=== PATIENT | female | born 1995 | race Asian ===

== ENCOUNTER 2016-08-17 17:02 | Emergency (ER) | payer OTHER ==
[~2016-08-17] VITALS: Ht 160 cm; Wt 50.7 kg
[2016-08-17 17:05] VITALS: BP 104/57; PULSE 61; TEMP 36.9; O2SAT 97; Ht 160 cm; Wt 50.7 kg
--- NOTE | 2016-08-17 17:27 | EMERGENCY ROOM VISIT NOTE ---
ED Visit Note First contact with patient: 17:12 Chief Complaint: Burn on RIGHT Forearm History of Present Illness: Patient is a 20-year-old female who presents to the emergency permit this evening for evaluation of a burn to the RIGHT forearm. She reports that she was retrieving food out of the oven last evening at approximately 6 PM. She reports that she actually touched arm to the top of the stove. She reports immediate pain to the area. She applied petroleum jelly to the area with minimal relief of symptoms. She reports persistent burning to the area rating her discomfort a 7/10. She is tried nothing over-the -counter for symptoms. She denies any numbness or tingling into the distal tremor. She denies any associated hand pain, wrist pain, elbow pain, shoulder pain. Her tetanus status is up-to-date. Medications: No current medications. Allergies: No known allergies. PMH: No pertinent past medical history. SHx: Patient is a 20-year-old [employer] student who lives with roommates. ROS: All pertinent positive and negative review of systems are appropriately documented in the History of Present Illness. Physical Exam: VITAL SIGNS - Vital signs and Nursing Notes were reviewed. GENERAL -20-year-old female, well-developed, well-nourished, and in no acute distress. SKIN -there is an isolated 1.5 cm oval shaped burn noted to the proximal RIGHT forearm. No bullae. No skin sloughing. No eschar. No surrounding erythema or lymphangitic streaking appreciated. Sensation intact distally. NEURO - Patient is A&Ox3 and communicates appropriately with the provider. ED Course: Patient was seen and evaluated by myself. She presents with a small secondary burn to the RIGHT forearm. She was encouraged to use topical antibiotic ointment as well as NSAIDs [id number]. There is no secondary infection appreciated. Point. The patient was educated on following up with [facility] for recheck next week. She was educated on worrisome symptoms for return visit to the emergency department. Patient discharged home in good condition. In the evaluation and treatment this patient, following differential diagnoses were considered: Cellulitis, dermatitis, abscess, self-harm injury, amongst others. Impression: Burn to RIGHT Forearm Discharge Instructions: You have been treated in the Emergency Department today for a burn on your RIGHT Forearm. You should use Triple antibiotic ointment. This is an antibiotic ointment that will help to prevent the development of an infection at the site of your burn. After you have cleaned the burn site with soap and water and dried the area thoroughly, you should apply a layer of the ointment to the site of the burn with clean gauze or a clean tongue depressor. You should apply a dressing over the site of the burn to keep it clean from contamination. Look for signs of infection of the wound including: increased pain, swelling, foul discharge, streaking, or increased temperature. If any of these are noticed you should return to the Emergency Department for further assessment and treatment. For pain control, you can use the following xnuk-rdp-lhesqgc medicines (if >12 yo): - Regular strength (325mg/tab) Tylenol (acetaminophen) 2 tabs every 4-6 hours as needed. Do not exceed 12 tablets in a 24 hour period. Avoid taking more than 4 grams (4000 mg) of Tylenol per day. This includes any other sources of acetaminophen you may take on a regular basis. - Regular strength (200 mg/tab) Advil (ibuprofen) 1-2 tabs every 4-6 hours as needed. Do not exceed a dose of 3200 mg per day. Follow-up with [facility] next week for wound recheck. Return to the emergency department if your symptoms worsen despite treatment course outlined above. Current/Historical Medications No Active Prescriptions or Reported Meds Allergies Uncoded Allergies: SEAFOOD (Allergy, Severe, ANAPHYLAXIS, 08/17/16) Vital Signs Date Time Temp Pulse Resp B/P Pulse Ox O2 Delivery O2 Flow Rate FiO2 08/17/16 17:05 36.9 61 16 104/57 97 Room Air Departure Information Impression Primary Impression: Thermal burn Dispostion Home / Self-Care Condition GOOD Prescriptions No Active Prescriptions or Reported Meds Referrals No Doctor, Assigned (PCP) Patient Instructions ED Burn D 2nd, My [facility] Additional Instructions You have been treated in the Emergency Department today for a burn on your RIGHT Forearm. You should use Triple antibiotic ointment. This is an antibiotic ointment that will help to prevent the development of an infection at the site of your burn. After you have cleaned the burn site with soap and water and dried the area thoroughly, you should apply a layer of the ointment to the site of the burn with clean gauze or a clean tongue depressor. You should apply a dressing over the site of the burn to keep it clean from contamination. Look for signs of infection of the wound including: increased pain, swelling, foul discharge, streaking, or increased temperature. If any of these are noticed you should return to the Emergency Department for further assessment and treatment. For pain control, you can use the following jxqm-srk-cvawuhm medicines (if >12 yo): - Regular strength (325mg/tab) Tylenol (acetaminophen) 2 tabs every 4-6 hours as needed. Do not exceed 12 tablets in a 24 hour period. Avoid taking more than 4 grams (4000 mg) of Tylenol per day. This includes any other sources of acetaminophen you may take on a regular basis. - Regular strength (200 mg/tab) Advil (ibuprofen) 1-2 tabs every 4-6 hours as needed. Do not exceed a dose of 3200 mg per day. Follow-up with [facility] next week for wound recheck. Return to the emergency department if your symptoms worsen despite treatment course outlined above.
== END 2016-08-17 17:32 | disposition home or self-care (01) ==
LOC: C.EDB 17:05 → C.EDD 17:32
DX: T22.011A Burn of unspecified degree of right forearm, initial encounter (principal); X19.XXXA Contact with other heat and hot substances, initial encounter; Z91.018 Allergy to other foods

== ENCOUNTER 2017-05-23 21:14 | Emergency (ER) | payer OTHER ==
[~2017-05-23] VITALS: Ht 157.5 cm; Wt 49.6 kg
[2017-05-23 21:16] VITALS: TEMP 36.8; Ht 157.5 cm; Wt 49.6 kg
[2017-05-23] MEDS ORDERED: MULT-506 PO (21:47)
[2017-05-23] MEDS ORDERED: CHOL1000 PO (21:47)
[2017-05-23 22:24] LABS: HEMATOCRIT 37.4 % (37-47); HEMOGLOBIN 13.2 g/dL (12.0-16.0); MEAN CELL VOLUME 88.8 fL (80-100); MEAN CORPUSCULAR HEMOGLOBIN 31.4 pg (25-34); MEAN CORPUSCULAR HGB CONC 35.3 g/dl (32-36); MEAN PLATELET VOLUME 8.8 fL (7.4-10.4); PLATELET COUNT 295 K/uL (130-400); RED CELL DISTRIBUTION WIDTH CV 12.1 % (11.5-14.5); RED CELL DISTRIBUTION WIDTH SD 38.9 fL (36.4-46.3); WHITE BLOOD COUNT 3.66 K/uL (4.8-10.8)
[2017-05-23 22:43] LABS: ALBUMIN 3.8 gm/dl (3.4-5.0); CALCIUM 8.8 mg/dl (8.5-10.1); CREATININE 0.7 mg/dl (0.60-1.20); POTASSIUM 3.8 mmol/L (3.5-5.1)
[2017-05-23 22:46] LABS: TOTAL PROTEIN 7.7 gm/dl (6.4-8.2)
[2017-05-23 22:49] LABS: BASO % 0.3 %; BASO ABS # 0.01 K/uL (0-0.2); EOS % 1.1 %; EOS ABS # 0.04 K/uL (0-0.5); IG# 0.01 K/uL (0.00-0.02); LYMPH % 50.8 %; LYMPH ABS # 1.86 K/uL (1.2-3.4); MONO ABS # 0.33 K/uL (0.11-0.59); NEUT % 38.5 %; NEUT ABS # 1.41 K/uL (1.4-6.5)
--- NOTE | 2017-05-24 00:11 | EMERGENCY ROOM VISIT NOTE ---
History First contact with patient: 21:29 Chief Complaint: FLU LIKE SX Stated Complaint: VOMIT,DIARRHEA,FEVER,STOMACH PAIN,LOW ENERGY History of Present Illness The patient is a 21 year old female who presents to the Emergency Room with complaints of nausea, vomiting, diarrhea 8-9 times per day for the past 5 days. The patient states 2 days ago, she did note a subjective fever. She states she has also been experiencing myalgias, and abdominal pain. The patient states the abdominal pain is generalized, and states it does not have one location. She has not taken any medications for her symptoms with the exception of "a prescription by Dr. James Reyna gave me for stomach pains". The patient has not taken any medications for the diarrhea. There has been no recent travel, and she has not recently been on antibiotics. The patient denies any recent illness. She denies cough, congestion, runny nose, otalgia, sore throat, chest pain, wheezing, dyspnea, or other associated symptoms. There is been no constipation. The patient describes the diarrhea as soft, and states she experiences it as soon as she eats. She states it is normally light brown in color, but occasionally is darker. Review of Systems A complete 10 point review of systems was reviewed with the patient with pertinent positives and negatives as per history of present illness. All else were negative. Past Medical/Surgical History None Social History Smoking Status: Never Smoker Smokeless Tobacco Use: No Alcohol Use: none Drug Use: none Marital Status: single Housing Status: lives with roommate Occupation Status: [employer] student Current/Historical Medications Scheduled Cholecalciferol (Vitamin D3), 1,000 INTER.UNIT PO DAILY Multivitamin (Multivitamin), 1 TAB PO DAILY Ondasetron Odt (Zofran Odt), 4 MG SL Q6H Allergies Seafood Physical Exam Vital Signs Date Time Temp Pulse Resp B/P (MAP) Pulse Ox O2 Delivery O2 Flow Rate FiO2 05/24/17 00:17 79 16 111/60 96 Room Air 05/23/17 23:23 89 16 116/67 96 Room Air 05/23/17 21:16 36.8 101 18 148/85 96 Room Air Physical Exam VITALS: Vitals are noted on the nurse's note and reviewed by myself. Vital signs stable. GENERAL: This is a 21-year-old female, in no acute distress, nondiaphoretic, well-developed well-nourished. SKIN: The skin was without rashes, erythema, edema, or bruising. There is no tenting of the skin. Capillary reflex less than 2 seconds. HEAD: Normocephalic atraumatic. EARS: External auditory canals clear, tympanic membranes pearly cordoba without erythema or effusion bilaterally. EYES: Pupils equal round and reactive to light and accommodation. Conjunctivae without injection, sclerae without icterus. Extraocular movements intact. NOSE: Patent, turbinates without inflammation or discharge. No sinus tenderness. MOUTH: Mucous membranes moist. Tonsils are not enlarged. Pharynx without erythema or exudate. Uvula midline. Airway patent. Tongue does not deviate. NECK: Supple without nuchal rigidity. No lymphadenopathy. No thyromegaly. Cervical spine is nontender. No JVD. HEART: Regular rate and rhythm without murmurs gallops or rubs. LUNGS: Clear to auscultation bilaterally without wheezes, rales or rhonchi. No dullness to percussion. No retractions or accessory muscle use. ABDOMEN: Positive bowel sounds x 4. Normal tympanic percussion. Mild tenderness diffusely, otherwise soft, without masses or organomegaly. Marcelo sign negative. No guarding or rebound tenderness. MUSCULOSKELETAL: No muscle atrophy, erythema, or edema noted. Full range of motion without joint tenderness in all extremities. No tenderness to palpation. Normal gait. Strength 5/5 throughout. NEURO: Patient was alert and oriented to person place and time. Normal sensation to light and sharp touch. Deep tendon reflexes 2+ throughout. No focal neurological deficits. Medical Decision & Procedures ER Provider Diagnostic Interpretation: KUB: Interpreted by myself and Dr. Palomo. Moderate amount of stool throughout the bowel. No signs of obstruction. No obvious ureteral stone noted. CBC was without leukocytosis, anemia, thrombocytopenia. CMP without significant renal, hepatic, electrolyte abnormalities. Lipase normal. Urinalysis without obvious signs of infection. There were calcium oxalate crystals noted. Urine does appear to be contaminated, negative do not suspect the patient was successful at a clean catch. Urine test was negative. Stool cultures pending. Laboratory Results 05/23/17 22:00 Red Blood Count 4.21, Mean Corpuscular Volume 88.8, Mean Corpuscular Hemoglobin 31.4, Mean Corpuscular Hemoglobin Concent 35.3, Mean Platelet Volume 8.8, Neutrophils (%) (Auto) 38.5, Lymphocytes (%) (Auto) 50.8, Monocytes (%) (Auto) 9.0, Eosinophils (%) (Auto) 1.1, Basophils (%) (Auto) 0.3, Neutrophils # (Auto) 1.41, Lymphocytes # (Auto) 1.86, Monocytes # (Auto) 0.33, Eosinophils # (Auto) 0.04, Basophils # (Auto) 0.01 05/23/17 22:00 Test 05/23/17 21:45 05/23/17 22:00 Urine Color YELLOW Urine Appearance CLEAR (CLEAR) Urine pH 5.0 (4.5-7.5) Urine Specific [place] 1.034 (1.000-1.030) Urine Protein TRACE (NEG) Urine Glucose (UA) NEG (NEG) Urine Ketones TRACE (NEG) Urine Occult Blood NEG (NEG) Urine Nitrite NEG (NEG) Urine Bilirubin NEG (NEG) Urine Urobilinogen NEG (NEG) Urine Leukocyte Esterase NEG (NEG) Urine WBC (Auto) 1-5 /hpf (0-5) Urine RBC (Auto) 5-10 /hpf (0-4) Urine Hyaline Casts (Auto) 1-5 /lpf (0-5) Urine Epithelial Cells (Auto) >30 /lpf (0-5) Urine Bacteria (Auto) NEG (NEG) Urine Crystals CALCIUM OXALATE (NONE Urine Test NEG (NEG) White Blood Count 3.66 K/uL (4.8-10.8) Red Blood Count 4.21 M/uL (4.2-5.4) Hemoglobin 13.2 g/dL (12.0-16.0) Hematocrit 37.4 % (37-47) Mean Corpuscular Volume 88.8 fL (80-100) Mean Corpuscular Hemoglobin 31.4 pg (25-34) Mean Corpuscular Hemoglobin Concent 35.3 g/dl (32-36) Platelet Count 295 K/uL (130-400) Mean Platelet Volume 8.8 fL (7.4-10.4) Neutrophils (%) (Auto) 38.5 % Lymphocytes (%) (Auto) 50.8 % Monocytes (%) (Auto) 9.0 % Eosinophils (%) (Auto) 1.1 % Basophils (%) (Auto) 0.3 % Neutrophils # (Auto) 1.41 K/uL (1.4-6.5) Lymphocytes # (Auto) 1.86 K/uL (1.2-3.4) Monocytes # (Auto) 0.33 K/uL (0.11-0.59) Eosinophils # (Auto) 0.04 K/uL (0-0.5) Basophils # (Auto) 0.01 K/uL (0-0.2) RDW Standard Deviation 38.9 fL (36.4-46.3) RDW Coefficient of Variation 12.1 % (11.5-14.5) Immature Granulocyte % (Auto) 0.3 % Immature Granulocyte # (Auto) 0.01 K/uL (0.00-0.02) Anion Gap 7.0 mmol/L (3-11) Est Creatinine Clear Calc Drug Dose 98.7 ml/min Estimated GFR () 142.5 Estimated GFR (Non- 123.0 BUN/Creatinine Ratio 15.7 (10-20) Calcium Level 8.8 mg/dl (8.5-10.1) Total Bilirubin 0.2 mg/dl (0.2-1) Aspartate Amino Transf (AST/SGOT) 24 U/L (15-37) Alanine Aminotransferase (ALT/SGPT) 23 U/L (12-78) Alkaline Phosphatase 46 U/L (45-117) Total Protein 7.7 gm/dl (6.4-8.2) Albumin 3.8 gm/dl (3.4-5.0) Globulin 3.9 gm/dl (2.5-4.0) Albumin/Globulin Ratio 1.0 (0.9-2) Lipase 100 U/L (73-393) ED Course The patient was seen and evaluated as above. IV access obtained, labs drawn. Lab workup was reviewed, and I did reassess the patient. She does complain of an episode of sharp abdominal pain lasting a few minutes prior to my reassessment. KUB was ordered and reviewed by myself and Dr. Palomo. Discharge instructions reviewed, the patient was discharged home in good condition. Medical Decision This is a 21-year-old female who presents to the emergency department today complaining of vomiting, diarrhea, myalgias, and generalized abdominal pain 5- 6 days. The patient states she is feeling overall well while here in the emergency department, and states her symptoms have been overall similar, but seeming to improve minimally over the past 2 days. The emergency department, the patient had one loose stool, but does not have liquid diarrhea. She has not had any blood in her stool or urine. There has been no recent travel or antibiotic usage. I suspect a viral gastroenteritis, and the patient's symptoms are consistent with this diagnosis. The patient has had overall normal vital signs while here in the emergency department. The patient was advised to continue to treat her symptoms, and follow-up with [facility] if no improvement by next week. Her abdominal x-ray did show a moderate amount of stool in the bowel. The patient states she has been taking a prescribed medication for abdominal pain from her doctor in [place], but is uncertain what this medication is. I suspect it could be an antispasmodic, and I advised the patient against taking this medication, as I question whether it is keeping her from fully emptying the bowel. All questions were answered to the patient's satisfaction, and she was discharged home in good condition. Etiologies such as appendicitis, diverticulitis, obstruction, inflammatory bowel disease, influenza, gastroenteritis, renal colic, PUD, biliary pathology, pancreatitis, mesenteric ischemia, aortic pathology, infections, genitourinary, UTI, perforated viscus, as well as others were entertained. Medication Reconcilliation Current Medication List: was personally reviewed by me Blood Pressure Screening Patient's blood pressure: Normal blood pressure Impression Primary Impression: Gastroenteritis Departure Information Dispostion Home / Self-Care Condition GOOD Prescriptions Ondasetron Odt (ZOFRAN ODT) 4 Mg Tab 4 MG SL Q6H for Nausea, #6 TAB Prov: Ana Bhandari, GRECIA 05/24/17 Referrals No Doctor, Assigned (PCP) [facility] Patient Instructions ED Gastroenteritis Viral, My [facility] Additional Instructions You have been treated in the Emergency Department your Abdominal Pain. Laboratory results and imaging studies have ruled out any emergent causes for your abdominal pain which would warrant admission or surgery. You have been prescribed Zofran to be used for any nausea or vomiting. Take as prescribed. For pain control, you can use the following riwk-sot-[id number] medicines (if >12 yo): Ibuprofen(Motrin, Advil) may be used for fever or pain. Use 600mg every six hours as needed. Take with food. Avoid using more than 2400mg in a 24 hour period. Do not use 2400mg per day for more than three consecutive days without physician direction. Prolonged inappropriate use can lead to stomach upset or ulcers. (AND/OR) Acetaminophen(Tylenol) may be used for fever or pain. Use 1000mg every six hours as needed. Avoid using more than 3000mg in a 24 hour period. Drink plenty of water and stay well hydrated. Consider a high fiber diet and adding a probiotic to your diet to help with the diarrhea. Stool cultures were obtained. If any concerning growth, you will receive a call and further instructions in 2-3 days time. As with any trip to the Emergency Department, you should follow-up with your Primary Care Provider from today's visit. Return to the emergency department if your symptoms persist despite treatment plan outlined above or if the following symptoms occur: increased fevers, chills , worsening nausea/vomiting, blood in your stool or urine.
[2017-05-24 00:17] VITALS: BP 111/60; PULSE 79; O2SAT 96
[2017-05-24] MEDS ORDERED: ONDA4TAB10 SL (00:18)
--- NOTE | 2017-05-24 05:50 | DIAGNOSTIC IMAGING REPORT ---
KUB CLINICAL HISTORY: abdominal/sabrina flank pain pain COMPARISON STUDY: No previous studies for comparison. FINDINGS: The soft tissues, psoas shadows, renal outlines and intestinal gas pattern appear normal. There is no evidence for bowel obstruction. No abnormal abdominal calcifications are seen. IMPRESSION: Normal study. The above report was generated using voice recognition software. It may contain grammatical, syntax or spelling errors. Electronically signed by: Russ Drake M.D. 05/24/2017 5:48 AM Dictated Date/Time: 05/24/2017 5:48 AM
== END 2017-05-24 00:27 | disposition home or self-care (01) ==
LOC: C.EDB 21:16 → C.EDA 05-24 00:27
DX: K52.9 Noninfective gastroenteritis and colitis, unspecified (principal); Z79.899 Other long term (current) drug therapy; Z91.018 Allergy to other foods